=== PATIENT | female | born 1945 | race Caucasian/White ===

== ENCOUNTER → 2019-02-16 | Day surgery (SDC) | payer BC, MEDICARE ==
[~2019-02-16] MED LIST: Lactated Ringers 1,000 ML IV SCH; Propofol 200 MG/20 ML SDV ONE; fentaNYL 100 MCG/2 ML SDV ONE
--- NOTE | 2019-02-16 13:54 | OR ---
DATE OF PROCEDURE: 02/16/2019 SURGEON: Dagoberto Black MD PREOPERATIVE DIAGNOSIS: History of colon polyps. POSTOPERATIVE DIAGNOSES: Diverticulosis, history of colon polyps. PROCEDURE: Colonoscopy to the cecum. ANESTHESIA: IV anesthesia with monitored anesthesia care. INDICATION: This 73-year-old white female is referred for a colonoscopy because of a history of colon polyps. Presumably, these were adenomatous polyps. She says her last colonoscopy, which was done 5 years ago was clear and she does not know if she has diverticulosis. I counseled her for a colonoscopy with possible biopsy and/or polypectomy, including risks and alternatives, and she gave her informed consent to proceed. DESCRIPTION OF PROCEDURE: The patient was placed in the left lateral decubitus position. IV anesthesia was administered by the Anesthesia Service. Time-out was held. A rectal exam was performed, which was unremarkable. The flexible video Olympus colonoscope was introduced through her anus, up her rectum, out her colon all the way to the cecum. En route, we saw multiple both left and right-sided diverticula. There was no bleeding or inflammation associated with any of them. To reach the cecum, we did have to apply abdominal compression. Once the cecum was reached, the scope was slowly withdrawn examining the mucosa throughout. No additional mucosal abnormalities were noted. No neoplastic lesions were seen. The scope was retroflexed in the rectum with the distal rectum showing some hemorrhoidal tissue, otherwise unremarkable. The scope was straightened and removed. She tolerated the procedure well. Dagoberto Black MD /[id number]
== END | disposition home or self-care (01) ==
LOC: JP.SDS 06:44
PROVIDERS: ATTEND Surgery
DX: Z12.11 Encounter for screening for malignant neoplasm of colon (principal); K57.30 Diverticulosis of large intestine without perforation or abscess without bleeding; I10 Essential (primary) hypertension; Z86.010 Personal history of colon polyps; Z91.040 Latex allergy status
CPT/HCPCS: G0121; J2704; J3010

== ENCOUNTER 2024-02-14 07:26 | Day surgery (SDC) | payer MEDICARE ==
[~2024-02-14 07:26] MED LIST changes: -Lactated Ringers 1,000 ML IV SCH; -fentaNYL 100 MCG/2 ML SDV ONE; +fentaNYL 50 MCG/ML SDV ONE
[2024-02-14] MEDS: Sodium Chloride 0.9% 1,000 ML IV SCH (08:26)
[2024-02-14] MEDS ORDERED: Propofol 200 MG/20 ML SDV ONE (09:59)
== END 2024-02-14 11:23 | disposition home or self-care (01) ==
LOC: JP.SDS 07:26
PROVIDERS: ATTEND Surgery
DX: Z12.11 Encounter for screening for malignant neoplasm of colon (principal); K57.30 Diverticulosis of large intestine without perforation or abscess without bleeding; I10 Essential (primary) hypertension; Z86.0100 Personal history of colon polyps, unspecified
CPT/HCPCS: 00812-QZ; J2704; J3010; J7030